=== PATIENT | female | born 1975 | race American Indian/Alaskan Native ===

== ENCOUNTER 2018-01-02 06:55 | Day surgery (SDC) | payer BC, OTHER ==
[~2018-01-02] VITALS: Ht 162.6 cm; Wt 108.9 kg
[~2018-01-02 06:55] MED LIST: CLARITIN10 MG PO; DULERA 100 MCG/13 GM INH; MONTELUKAST SOD10 MG PO; PROAIR HFA8.5 GM INH
--- NOTE | 2018-01-02 08:12 | NUR ---
RN UNABLE TO HEAR HEART MURMUR. PATIENT REPORTS THAT DR. WILKINSON NOTED A HEART MURMUR AT APPOINTMENT, BUT HAS NEVER BEEN PREVIOUSLY AWARE OF THIS. PATIENT IS ASYMPTOMATIC. EKG BEING DONE STAT BEFORE SURGERY.
--- NOTE | 2018-01-02 09:29 | NUR ---
PATIENT TO SURGERY.
--- NOTE | 2018-01-02 10:12 | NUR ---
01/02/18 Dilia2 Alma Asher 1007-PATIENT ARRIVED TO PACU ON 6L OM O2 SAT 99% PATIENT REACTIVE TO VOICE SR. RR EVEN. DRESSING TO LEFT LEG CDI ICE APPLIED ELEVATED ON PILLOW. IVF INFUSING 1011-WEANED TO 2L NC O2 SAT 97% DROWSY DENIES PAIN OR NAUSEA.
--- NOTE | 2018-01-02 11:22 | OR ---
[facility] [address] [place], [place] [address] Signed DATE OF OPERATION: 01/02/2018 SURGEON: Dino Wilkinson MD PREOPERATIVE DIAGNOSIS: A 15 mm subcutaneous mass, left lateral calf (sebaceous cyst). POSTOPERATIVE DIAGNOSIS: A 15 mm subcutaneous mass, left lateral calf (sebaceous cyst). PROCEDURE: Excision of sebaceous cyst, left lateral calf. ESTIMATED BLOOD LOSS: None. INDICATIONS: Neela is a 42-year-old female who had a cystic structure on her left lateral calf about mid way, but between the calf and the ankle. She said it was larger than a golf ball. She finally had it lanced and when they squeezed at this, thick, cottage cheese looking material came out of it. She said it was better for a little while, but now it started to recur. She was therefore asked to see me by her primary care provider. I explained to Neela and her significant other that this is a sebaceous cyst and until the entire cyst wall was removed, it will continue to recur. It is fairly large at least 15 mm wide and it was quite indurated and we decided to do it over to the hospital under good lighting with some monitored anesthesia care and local anesthetic. We wanted to guarantee that all the cyst wall was removed. In addition, there was the possible need for skin flaps in order to bring the tissue back together primarily. However, if it turned out to be too wide, we would simply pack it and allow to heal in secondarily. I had explained all this to Neela and her significant other. They had expressed understanding and wished to proceed. PROCEDURE NOTE: I met with Neela and her significant other in her preop area. We were able to easily identify the cystic structure on her left lateral tibia midway between the calf and the ankle. We marked that appropriately. After this, we took Neela into the operating room and we placed her in the right lateral decubitus position with appropriate padding and monitoring. She was given monitored anesthesia care per our nurse ore dryer. Her left leg and foot were then prepped and draped in the usual sterile fashion. I then injected local anesthetic in and around the lesion. There was already a 3 mm opening in Electronically Signed By: DINO WILKINSON MD 01/02/18 1122 PATIENT NAME: NEELA STEVENS OPERATIVE REPORT DATE OF : 77 REPORT #: [id number] PHYSICIAN: DINO WILKINSON MD PCP: DERRICK KRAMER REPORT IS CONFIDENTIAL AND NOT TO BE RELEASED WITHOUT AUTHORIZATION [facility] [address], [place] [address] Signed the center of the lesion, so we simply made a vertical incision over that, very carefully started our dissection. We realized indeed it was a little larger than we thought. We had to extend our incision cephalad and caudad. We then worked very carefully around the entire cyst wall and found out the cyst itself was at least 15 mm wide and a little bit longer. The entire wound was probably a couple of centimeters wide. Consequently, would have taken significant skin flaps to bring that tissue together primarily. Rather than do that, we chose to leave the wound open and we packed it with saline-soaked gauze and we will allow this to heal in secondarily. Of course, the overlying skin was extremely thin and we will see how that that works out over time. Of course if that would breakdown, new skin will come right across in due time. In this way, we were able to get the entire cyst and cyst wall removed. We wrapped. We then placed dry gauze over the packing with a Flexicon wrap around her leg. After this, Neela was rotated supine in her hospital bed and taken into recovery room in stable condition. Dino Wilkinson MD ALB/MODL /[id number] cc: MD Derrick Ibanez PA Copies: DINO WILKINSON MD, KRISTIN H PA ~ Electronically Signed By: DINO WILKINSON MD 01/02/18 1122 PATIENT NAME: NEELA STEVENS OPERATIVE REPORT DATE OF : 77 REPORT #: [id number] PHYSICIAN: DINO WILKINSON MD PCP: DERRICK KRAMER REPORT IS CONFIDENTIAL AND NOT TO BE RELEASED WITHOUT AUTHORIZATION
--- NOTE | 2018-01-03 21:00 | EKG ---
[facility] [address] [facility] [place], [place] [address] Signed Normal sinus rhythm Normal ECG No previous ECGs available Confirmed by KEILA NARVAEZ DO ([id number]) on 01/03/2018 9:00:27 PM Electronically Signed By: KEILA NARVAEZ DO 01/03/18 2100 PATIENT NAME: YULIYA STEVENS Electrocardiogram DATE OF : 77 PHYSICIAN: KEILA NARVAEZ DO REPORT #: [id number] REPORT IS CONFIDENTIAL AND NOT TO BE RELEASED WITHOUT AUTHORIZATION
== END 2018-01-02 10:53 | disposition home or self-care (01) ==
LOC: DS 06:55
PROVIDERS: Colon & Rectal Surgery
PROC: 0JBP0ZZ Excision of Left Lower Leg Subcutaneous Tissue and Fascia, Open Approach (ICD-10-PCS; principal; 2018-01-02 08:45)
DX: L72.3 Sebaceous cyst (principal); I10 Essential (primary) hypertension; J45.909 Unspecified asthma, uncomplicated; E55.9 Vitamin D deficiency, unspecified; E66.9 Obesity, unspecified; Z79.899 Other long term (current) drug therapy; Z87.891 Personal history of nicotine dependence; Z68.41 Body mass index [BMI] 40.0-44.9, adult
CPT/HCPCS: 00400; 93005; 93010; J0690; J1644; J2250; J2704; J3010; J7120

== ENCOUNTER 2024-03-10 14:50 | Emergency (ER) | payer OTHER, BC ==
[~2024-03-10] VITALS: Ht 162.6 cm; Wt 91.7 kg
[2024-03-10] MEDS ORDERED: DIPHTH,PERTUSS(ACELL),TET VAC 0.5 ML SYRINGE IM ONE (16:15)
[2024-03-10] MEDS ORDERED: AMOXICILLIN/CLAVULANATE K 875 MG TAB PO ONE (16:30)
[2024-03-10] MEDS ORDERED: IBUPROFEN 600 MG TAB PO ONE (16:30)
[2024-03-10] MEDS ORDERED: HYDROCODONE/ACETA 5/325 TAB PO ONE (16:30)
[2024-03-10] MEDS ORDERED: AMOX TR-K CLV1 EAC1 PO (17:08)
[2024-03-10] MEDS ORDERED: HYDROCODON-ACE1 EA10 PO (17:08)
[2024-03-10 17:17] VITALS: BP 138/70
== END 2024-03-10 17:17 | disposition home or self-care (01) ==
LOC: ED 14:50
DX: S71.152A Open bite, left thigh, initial encounter (principal); Z23 Encounter for immunization; Z79.51 Long term (current) use of inhaled steroids; Z79.899 Other long term (current) drug therapy; W54.0XXA Bitten by dog, initial encounter
CPT/HCPCS: 12002; 90471; 90715; 99283-25; A9270